=== PATIENT | male | born 1940 | race Caucasian/White ===

== ENCOUNTER 2021-01-01 09:24 | Outpatient (CLI) | payer MEDICARE | END 2021-01-01 09:25 | disposition home or self-care (01) | LOC: CSHWCC 09:24 | PROVIDERS: ATTEND Nurse Practitioner Family | DX: L89.320 Pressure ulcer of left buttock, unstageable (principal); L89.156 Pressure-induced deep tissue damage of sacral region; U07.1 COVID-19; C61 Malignant neoplasm of prostate; N17.9 Acute kidney failure, unspecified; E78.5 Hyperlipidemia, unspecified; I11.0 Hypertensive heart disease with heart failure; I50.32 Chronic diastolic (congestive) heart failure; K92.2 Gastrointestinal hemorrhage, unspecified; I82.4Z3 Acute embolism and thrombosis of unspecified deep veins of distal lower extremity, bilateral; M62.50 Muscle wasting and atrophy, not elsewhere classified, unspecified site; N39.0 Urinary tract infection, site not specified; Y84.6 Urinary catheterization as the cause of abnormal reaction of the patient, or of later complication, without mention of misadventure at the time of the procedure | CPT/HCPCS: 87070; 87205 ==